=== PATIENT | female | born 1950 | race Caucasian/White ===

== ENCOUNTER 2017-09-24 05:34 | Inpatient (IN) | payer MEDICARE, BC ==
[2017-09-24] MEDS: LACTATED RINGER'S 1,000 ML IV* (06:47)
[2017-09-24] MEDS: CEFAZOLIN 2 GM/50 ML (PMX) 50 ML IVPB (06:47)
[2017-09-24] MEDS ORDERED: CEFAZOLIN 1 GM INJ (07:00)
[2017-09-24] MEDS ORDERED: LIDOCAINE 2% (SDV) 5 ML INJ (07:00)
[2017-09-24] MEDS ORDERED: PROPOFOL 20 ML (07:05)
[2017-09-24] MEDS ORDERED: ROCURONIUM 50 MG INJ (07:07)
[2017-09-24] MEDS ORDERED: morphine 10 MG INJ (07:08)
[2017-09-24] MEDS ORDERED: DEXAMETHASONE 4 MG/ML 1 ML INJ (07:11)
[2017-09-24] MEDS ORDERED: ONDANSETRON 4 MG INJ (07:11)
[2017-09-24] MEDS: POLYMYXIN/BACITRACIN 1L IRRIG (08:15)
[2017-09-24] MEDS: BUPIVACAINE 0.25% (MPF) 30 ML INJ (08:15)
[2017-09-24] MEDS ORDERED: ACETAMINOPHEN 1000MG/100ML IV 100 ML (09:03)
[2017-09-24] MEDS: THROMBIN 5000 UNIT VIAL (10:20)
[2017-09-24] MEDS: GELATIN SIZE 100 SPONGE (10:20)
[2017-09-24] MEDS ORDERED: THROMBIN(HUM PLAS)/FIBRINOG/CA 5 ML VIAL TOP (11:01)
[2017-09-24] MEDS ORDERED: SUGAMMADEX SODIUM 200 MG/2 ML VIAL IV (11:24)
[2017-09-24] MEDS: DEXTROSE 5%-0.45% NACL 1,000 ML IV (12:21)
[2017-09-24] MEDS ORDERED: traMADol 50 MG TAB PO (12:30)
[2017-09-24] MEDS ORDERED: BETHANECHOL 25 MG TAB PO (12:30)
[2017-09-24] MEDS ORDERED: LABETALOL HCL 20MG INJ IV (12:30)
[2017-09-24] MEDS ORDERED: hydrALAzine 20 MG INJ IV (12:30)
[2017-09-24] MEDS ORDERED: ALBUTEROL 0.083% (NEB) 2.5 MG/3 ML AMP HHN (12:30)
[2017-09-24] MEDS ORDERED: ONDANSETRON 4 MG INJ IV (12:30)
[2017-09-24] MEDS ORDERED: DIAZEPAM 5 MG/ML SYG IM (12:30)
[2017-09-24] MEDS ORDERED: FENTAnyl 50 MCG/ML VIAL IV ×3 (12:30)
[2017-09-24] MEDS ORDERED: CEPASTAT LOZENGE MT (12:30)
[2017-09-24] MEDS ORDERED: NALOXONE (0.4 MG/ML) INJ IV (12:30)
[2017-09-24] MEDS ORDERED: DIPHENHYDRAMINE 50 MG CAP PO (12:30)
[2017-09-24] MEDS ORDERED: HYDROmorphONE 1 MG/5 ML IV SYRINGE IV ×3 (12:30)
[2017-09-24] MEDS ORDERED: AL HYDROX/MG HYDROX/SIMETH 30 ML CUP PO (12:30)
[2017-09-24] MEDS ORDERED: NACL 0.9% 3 ML SYG IV (12:30)
[2017-09-24] MEDS ORDERED: EPHEDrine SULFATE 50 MG/5 ML SYG IV (12:30)
[2017-09-24] MEDS ORDERED: MEPERIDINE 25 MG INJ IV (12:30)
[2017-09-24] MEDS ORDERED: TRIMETHOBENZAMIDE 100 MG/ML VIAL IM (12:30)
[2017-09-24] MEDS ORDERED: DIPHENHYDRAMINE 50 MG INJ IV (12:30)
[2017-09-24] MEDS ORDERED: OXYCODONE/ACETAMINOPHEN (5/325) TAB PO ×2 (12:30)
[2017-09-24] MEDS: HYDROmorphONE 0.2 MG/ML PCA IV (13:10)
[2017-09-24] MEDS: METOCLOPRAMIDE 10 MG INJ IV (13:17)
[2017-09-24] MEDS: CEFAZOLIN 1 GM/50 ML (PMX) 50 ML IVPB (18:21)
[2017-09-24] MEDS ORDERED: RANITIDINE 150 MG TAB PO (21:00)
[2017-09-24] MEDS: SACUBITRIL/VALSARTAN (49mg-51mg) TABLET PO (21:25)
[2017-09-24] MEDS: ONDANSETRON 4 MG INJ IV (22:20)
[2017-09-25] MEDS: CEFAZOLIN 1 GM/50 ML (PMX) 50 ML IVPB ×3 (00:34→10:57)
[2017-09-25] MEDS: DEXTROSE 5%-0.45% NACL 1,000 ML IV (00:59)
[2017-09-25 05:07] LABS: HEMATOCRIT 23.4 % (37.0-47.0); HEMOGLOBIN 7.4 g/dl (12.0-16.0)
[2017-09-25 05:40] LABS: ANION GAP 14 (8-16); BLOOD UREA NITROGEN 17 mg/dl (7-20); CALCIUM 8.4 mg/dl (8.4-10.2); CARBON DIOXIDE 27 mmol/L (21-31); CHLORIDE 102 mmol/L (97-110); CREATININE 0.69 mg/dl (0.44-1.00); GLUCOSE 159 mg/dl (70-220); POTASSIUM 4.2 mmol/L (3.5-5.1); SODIUM 139 mmol/L (135-144)
[2017-09-25] MEDS: PANTOPRAZOLE (EC) 40 MG TAB PO (05:45)
[2017-09-25] MEDS: BUMETANIDE 1 MG TAB PO (05:45)
[2017-09-25] MEDS ORDERED: BETHANECHOL 25 MG TAB PO (08:00)
[2017-09-25] MEDS: DOCUSATE SODIUM 100 MG CAP PO ×2 (08:58→20:46)
[2017-09-25] MEDS: ASCORBIC ACID 500 MG TAB PO ×2 (08:58→20:46)
[2017-09-25] MEDS: FERROUS SULFATE (EC) 325 MG TAB PO ×3 (08:58→20:46)
[2017-09-25] MEDS: SACUBITRIL/VALSARTAN (24mg-26mg) TABLET PO ×2 (10:55→20:46)
[2017-09-25] MEDS: traMADol 50 MG TAB PO (10:57)
[2017-09-25] MEDS: ONDANSETRON 4 MG INJ IV ×2 (11:31→21:39)
[2017-09-25 13:06] LABS: ADD MAN DIFF? NO
[2017-09-25 13:09] LABS: WHITE BLOOD COUNT 10.9 10^3/ul (4.8-10.8)
[2017-09-25 13:09] LABS: BASOPHILS % 0.1 % (0.0-2.0); HEMATOCRIT 24.7 % (37.0-47.0); HEMOGLOBIN 7.7 g/dl (12.0-16.0); LYMPHOCYTES # 1.1 10^3/ul (0.8-2.9); LYMPHOCYTES % 9.9 % (15.0-51.0); MEAN CORPUSCULAR HEMOGLOBIN 25.8 pg (29.0-33.0); MEAN CORPUSCULAR HGB CONC 31.2 g/dl (32.0-37.0); MEAN CORPUSCULAR VOLUME 82.9 fl (82.0-101.0); MEAN PLATELET VOLUME 10.8 fl (7.4-10.4); MONOCYTE # 0.8 10^3/ul (0.3-0.9); NEUTROPHILS % 82.5 % (39.0-77.0); PLATELET COUNT 255 10^3/UL (140-415); RED BLOOD COUNT 2.98 10^6/ul (4.20-5.40); RED CELL DISTRIBUTION WIDTH 15.7 % (11.5-14.5)
[2017-09-25 16:10] LABS: ADD UMIC YES; UR ASCORBIC ACID NEGATIVE (NEGATIVE); UR BILIRUBIN (Dip) NEGATIVE (NEGATIVE); UR BLOOD (Dip) 1+ mg/dL (NEGATIVE); UR CLARITY CLEAR (CLEAR); UR COLOR STRAW (YELLOW); UR GLUCOSE (Dip) NEGATIVE (NEGATIVE); UR KETONES (Dip) NEGATIVE (NEGATIVE); UR LEUKOCYTE ESTERASE (Dip) NEGATIVE Leu/ul (NEGATIVE); UR NITRITE (Dip) NEGATIVE (NEGATIVE); UR RBC 7 /HPF (0-5); UR SPECIFIC GRAVITY (Dip) 1.009 (1.003-1.030); UR TOTAL PROTEIN (Dip) NEGATIVE (NEGATIVE); UR UROBILINOGEN (Dip) NEGATIVE (NEGATIVE); UR WBC 0 /HPF (0-5)
[2017-09-25] MEDS: ACETAMINOPHEN 325 MG TAB PO (20:53)
[2017-09-25] MEDS: ZOLPIDEM 5 MG TAB PO (21:35)
[2017-09-26 05:22] LABS: ADD MAN DIFF? NO
[2017-09-26 05:33] LABS: BASOPHILS % 0.1 % (0.0-2.0); EOSINOPHILS % 0.3 % (0.0-7.0); HEMATOCRIT 23.8 % (37.0-47.0); HEMOGLOBIN 7.2 g/dl (12.0-16.0); LYMPHOCYTES # 1.4 10^3/ul (0.8-2.9); LYMPHOCYTES % 18.5 % (15.0-51.0); MEAN CORPUSCULAR HEMOGLOBIN 25.4 pg (29.0-33.0); MEAN CORPUSCULAR HGB CONC 30.3 g/dl (32.0-37.0); MEAN CORPUSCULAR VOLUME 84.1 fl (82.0-101.0); MEAN PLATELET VOLUME 11.5 fl (7.4-10.4); MONOCYTE # 0.6 10^3/ul (0.3-0.9); MONOCYTES % 8.3 % (0.0-11.0); NEUTROPHIL # 5.3 10^3/ul (1.6-7.5); NEUTROPHILS % 72.1 % (39.0-77.0); PLATELET COUNT 222 10^3/UL (140-415); RED BLOOD COUNT 2.83 10^6/ul (4.20-5.40); RED CELL DISTRIBUTION WIDTH 15.8 % (11.5-14.5)
[2017-09-26 05:33] LABS: WHITE BLOOD COUNT 7.3 10^3/ul (4.8-10.8)
[2017-09-26] MEDS: BUMETANIDE 1 MG TAB PO (05:51)
[2017-09-26] MEDS: PANTOPRAZOLE (EC) 40 MG TAB PO (05:51)
[2017-09-26 05:55] LABS: ALANINE AMINOTRANSFERASE 21 IU/L (13-69); ALBUMIN 3.2 g/dl (3.3-4.9); ALBUMIN/GLOBULIN RATIO 1.39; ALKALINE PHOSPHATASE 64 IU/L (42-121); ANION GAP 13 (8-16); ASPARTATE AMINO TRANSFERASE 25 IU/L (15-46); BILIRUBIN,INDIRECT 0.3 mg/dl (0-1.1); BILIRUBIN,TOTAL 0.3 mg/dl (0.2-1.3); BLOOD UREA NITROGEN 14 mg/dl (7-20); CALCIUM 8.7 mg/dl (8.4-10.2); CARBON DIOXIDE 29 mmol/L (21-31); CHLORIDE 102 mmol/L (97-110); CREATININE 0.71 mg/dl (0.44-1.00); GLUCOSE 107 mg/dl (70-220); POTASSIUM 3.7 mmol/L (3.5-5.1); SODIUM 140 mmol/L (135-144); TOTAL PROTEIN 5.5 g/dl (6.1-8.1)
[2017-09-26] MEDS: PROCHLORPERAZINE 10 MG TAB PO ×2 (06:00→22:18)
[2017-09-26] MEDS: traMADol 50 MG TAB PO ×3 (06:23→22:14)
[2017-09-26] MEDS: POTASSIUM CHLORIDE (SR) 20 MEQ TAB PO (10:00)
[2017-09-26] MEDS: ASCORBIC ACID 500 MG TAB PO ×2 (10:00→21:06)
[2017-09-26] MEDS: DOCUSATE SODIUM 100 MG CAP PO ×2 (10:01→21:06)
[2017-09-26] MEDS: FERROUS SULFATE (EC) 325 MG TAB PO ×3 (10:01→21:07)
[2017-09-26] MEDS: EPLERENONE 25MG PO (10:21)
[2017-09-26] MEDS: SACUBITRIL/VALSARTAN (24mg-26mg) TABLET PO ×3 (10:22→22:43)
[2017-09-26] MEDS: DIAZEPAM 5 MG TAB PO (10:22)
[2017-09-26] MEDS: ONDANSETRON 4 MG INJ IV (15:05)
[2017-09-26] MEDS: BUMETANIDE 1 MG INJ IV (15:50)
[2017-09-26 16:24] LABS: IMMEDIATE SPIN CROSSMATCH 1 2
[2017-09-26] MEDS: ZOLPIDEM 5 MG TAB PO (22:15)
[2017-09-26 23:27] LABS: ADD MAN DIFF? NO
[2017-09-26 23:35] LABS: WHITE BLOOD COUNT 8.4 10^3/ul (4.8-10.8)
[2017-09-26 23:35] LABS: BASOPHILS % 0.5 % (0.0-2.0); EOSINOPHILS # 0.1 10^3/ul (0.0-0.5); EOSINOPHILS % 1.6 % (0.0-7.0); HEMATOCRIT 30.7 % (37.0-47.0); LYMPHOCYTES # 1.6 10^3/ul (0.8-2.9); LYMPHOCYTES % 18.6 % (15.0-51.0); MEAN CORPUSCULAR HEMOGLOBIN 26.9 pg (29.0-33.0); MEAN CORPUSCULAR HGB CONC 32.6 g/dl (32.0-37.0); MEAN CORPUSCULAR VOLUME 82.5 fl (82.0-101.0); MEAN PLATELET VOLUME 10.9 fl (7.4-10.4); MONOCYTE # 0.9 10^3/ul (0.3-0.9); MONOCYTES % 10.5 % (0.0-11.0); NEUTROPHIL # 5.7 10^3/ul (1.6-7.5); NEUTROPHILS % 68.2 % (39.0-77.0); PLATELET COUNT 235 10^3/UL (140-415); RED BLOOD COUNT 3.72 10^6/ul (4.20-5.40); RED CELL DISTRIBUTION WIDTH 15.7 % (11.5-14.5)
[2017-09-26 23:55] LABS: ANION GAP 15 (8-16); BLOOD UREA NITROGEN 11 mg/dl (7-20); CALCIUM 8.7 mg/dl (8.4-10.2); CARBON DIOXIDE 31 mmol/L (21-31); CHLORIDE 94 mmol/L (97-110); CREATININE 0.68 mg/dl (0.44-1.00); GLUCOSE 123 mg/dl (70-220); POTASSIUM 3.4 mmol/L (3.5-5.1); SODIUM 137 mmol/L (135-144)
[2017-09-27 04:59] LABS: ADD MAN DIFF? NO
[2017-09-27 05:07] LABS: WHITE BLOOD COUNT 7.4 10^3/ul (4.8-10.8)
[2017-09-27 05:07] LABS: BASOPHILS % 0.4 % (0.0-2.0); EOSINOPHILS # 0.2 10^3/ul (0.0-0.5); EOSINOPHILS % 2.6 % (0.0-7.0); HEMATOCRIT 30.6 % (37.0-47.0); HEMOGLOBIN 9.8 g/dl (12.0-16.0); LYMPHOCYTES # 1.6 10^3/ul (0.8-2.9); MEAN CORPUSCULAR HEMOGLOBIN 26.4 pg (29.0-33.0); MEAN CORPUSCULAR VOLUME 82.5 fl (82.0-101.0); MEAN PLATELET VOLUME 10.8 fl (7.4-10.4); MONOCYTE # 0.8 10^3/ul (0.3-0.9); MONOCYTES % 11.2 % (0.0-11.0); NEUTROPHIL # 4.7 10^3/ul (1.6-7.5); NEUTROPHILS % 63.3 % (39.0-77.0); PLATELET COUNT 234 10^3/UL (140-415); RED BLOOD COUNT 3.71 10^6/ul (4.20-5.40); RED CELL DISTRIBUTION WIDTH 15.6 % (11.5-14.5)
[2017-09-27 05:36] LABS: ALANINE AMINOTRANSFERASE 23 IU/L (13-69); ALBUMIN 3.3 g/dl (3.3-4.9); ALBUMIN/GLOBULIN RATIO 1.13; ALKALINE PHOSPHATASE 78 IU/L (42-121); ANION GAP 13 (8-16); ASPARTATE AMINO TRANSFERASE 19 IU/L (15-46); BILIRUBIN,INDIRECT 0.5 mg/dl (0-1.1); BILIRUBIN,TOTAL 0.5 mg/dl (0.2-1.3); BLOOD UREA NITROGEN 12 mg/dl (7-20); CALCIUM 8.7 mg/dl (8.4-10.2); CARBON DIOXIDE 31 mmol/L (21-31); CHLORIDE 100 mmol/L (97-110); CREATININE 0.69 mg/dl (0.44-1.00); GLUCOSE 110 mg/dl (70-220); POTASSIUM 3.5 mmol/L (3.5-5.1); SODIUM 140 mmol/L (135-144); TOTAL PROTEIN 6.2 g/dl (6.1-8.1)
[2017-09-27] MEDS: PANTOPRAZOLE (EC) 40 MG TAB PO (06:38)
[2017-09-27] MEDS: BUMETANIDE 1 MG TAB PO (06:38)
[2017-09-27] MEDS: SACUBITRIL/VALSARTAN (24mg-26mg) TABLET PO ×2 (09:00→11:01)
[2017-09-27] MEDS: ONDANSETRON 4 MG INJ IV (09:06)
[2017-09-27] MEDS: traMADol 50 MG TAB PO (09:06)
[2017-09-27] MEDS: ASCORBIC ACID 500 MG TAB PO (09:08)
[2017-09-27] MEDS: FERROUS SULFATE (EC) 325 MG TAB PO ×2 (09:08→13:00)
[2017-09-27] MEDS: DOCUSATE SODIUM 100 MG CAP PO (09:08)
[2017-09-27] MEDS: EPLERENONE 25MG PO (09:10)
== END 2017-09-27 17:15 | disposition home or self-care (01) | DRG 519 ==
LOC: REC 05:34 → MS1 09-25 15:52 → ICU 21:33
PROC: 01NB0ZZ Release Lumbar Nerve, Open Approach (ICD-10-PCS; principal; 2017-09-24 07:00)
PROC: 00QT0ZZ Repair Spinal Meninges, Open Approach (ICD-10-PCS; 2017-09-24 07:00)
PROC: 30233N1 Transfusion of Nonautologous Red Blood Cells into Peripheral Vein, Percutaneous Approach (ICD-10-PCS; 2017-09-24 07:12)
DX: M48.061 Spinal stenosis, lumbar region without neurogenic claudication (principal); I50.22 Chronic systolic (congestive) heart failure; D62 Acute posthemorrhagic anemia; I42.8 Other cardiomyopathies; G97.41 Accidental puncture or laceration of dura during a procedure; I11.0 Hypertensive heart disease with heart failure; Q76.49 Other congenital malformations of spine, not associated with scoliosis; I44.7 Left bundle-branch block, unspecified; M48.07 Spinal stenosis, lumbosacral region; Y69 Unspecified misadventure during surgical and medical care; Y82.8 Other medical devices associated with adverse incidents; Y92.234 Operating room of hospital as the place of occurrence of the external cause; K21.9 Gastro-esophageal reflux disease without esophagitis
CPT/HCPCS: 36430; 72020; 80048; 80053; 81001; 85014; 85018; 85025; 86850; 86900; 86901; 86920; 87081; 87086; 88304; 88311; 97116; 97161; 97530